=== PATIENT | male | born 1965 | race Caucasian/White ===

== ENCOUNTER 2019-01-11 13:46 | Inpatient (IN) ==
[~2019-01-11 13:46] MED LIST: HYDROmorphone 2 MG/1 ML ONE
[2019-01-11] MEDS ORDERED: DOCUSATE 100 MG CAPSULE PO PRN (13:54)
[2019-01-11] MEDS ORDERED: ONDANSETRON 4 MG/2 ML VIAL IVP PRN (13:54)
[2019-01-11] MEDS ORDERED: CALCIUM CARBONATE 500 MG (TUMS) CHEWABLE TABLET PO PRN (13:54)
[2019-01-11] MEDS ORDERED: HYDROmorphone 2 MG/1 ML IVP PRN (13:54)
[2019-01-11] MEDS ORDERED: LIDOCAINE W/ SODIUM BICARB 0.5 ML SYR SUBD PRN (13:54)
[2019-01-11] MEDS ORDERED: HYDROmorphone 2 MG/1 ML IVP ONE (13:56)
[2019-01-11] MEDS ORDERED: SUMATRIPTAN SUCCINATE 50 MG PO PRN (13:56)
--- NOTE | 2019-01-11 14:04 | PDOC ---
HPI - History of Present Illness Date of Service: 01/11/19 Time of Service: 13:58 Chief Complaint: Chest pain and sternal pain History of Present Illness: Is a very pleasant 53-year-old male with migraine headaches, hypertension, asthma, and recently had an injury about a month ago or so at work in which she was lifting some batteries and felt that he strained his upper back. He's been seeing Dr. Siu for this. The pain is been escalating over time, and today he came into the office stating that he had a cut of vacation short because his upper thoracic pain was excruciating, was literally putting the patient into tears and radiating into his sternum. He had shortness of breath. Nothing was making his pain better. Dr. Siu spoke to me regarding the patient. There was concern that he might have other pathologies other than a disc at a place, and Percocet is not being able to control his pain and perhaps this could be something like a dissection or other medical issue causing the pain as well. I was asked to see him in the clinic and I saw him and he was in writing pain moving backwards and forwards in his chair frequently to try and reposition. He did have some spasm in the left lateral muscles in the upper thoracic and medial to the scapula, but he was quite short of breath, breathing somewhat rapidly, and we admitted him for consideration of chest pain rule out as well as trying to get a CT scan rather quickly to make sure there is no underlying PE or thoracic aortic dissection. The patient does not have a history of diabetes, he has no family history of coronary artery disease although he does have hypert ension in the family, no cholesterol issues, no diabetes, and he does not smoke. Past Medical History Medical History: 1. Asthma. 2. Migraine headaches. 3. Depression/anxiety for which he is on fluoxetine. 4. Hypertension Surgical History: 1. Cholecystectomy. 2. Knee surgery 2. 3. Hand surgery. 4. Back surgery Pertinent Family History: Significant for hypertension Past Social History: Patient does not smoke or drink alcohol. He works. Tobacco Use: Never Smoker In the Past 12 Months, Have Used or Abuse Any of the Following Substance: None Alcohol Use: None Medication / Allergies Home Medications: Home Medications Medication Instructions Recorded Confirmed albuterol sulfate HFA 90 1 puff INH QID PRN #8.5 g 10/23/18 12/25/18 mcg/actuation aerosol inhaler allopurinol 300 mg tablet 300 mg PO QD #90 tab 10/23/18 12/25/18 budesonide-formoterol HFA 160 2 puff INH BID #10.2 g 10/23/18 12/25/18 mcg-4.5 mcg/actuation aerosol inhaler diltiazem CD 180 mg 180 mg PO QDAY #90 cap 10/23/18 12/25/18 capsule,extended release 24 hr fluoxetine 20 mg capsule 20 mg PO DAILY #90 cap 10/23/18 12/25/18 lisinopril 40 mg tablet 40 mg PO QD #90 tab 10/23/18 12/25/18 montelukast 10 mg tablet 10 mg PO DAILY #90 tab 10/23/18 12/25/18 sumatriptan 50 mg tablet 50 mg PO Q2-4H PRN #9 tab 12/01/18 12/25/18 nabumetone 750 mg tablet 750 mg PO QDAY PRN #50 tab 12/11/18 12/25/18 prednisone 10 mg tablet See Rx Instructions PO QDAY #36 tab 12/25/18 12/25/18 diazepam 5 mg tablet 5 mg PO Q6H PRN #30 tab 01/01/19 01/01/19 prednisone 10 mg tablet See Rx Instructions PO QDAY #21 tab 01/04/19 01/04/19 oxycodone-acetaminophen 7.5 mg-325 See Rx Instructions PO Q8H PRN #30 01/06/19 01/06/19 mg tablet tab Allergies/Adverse Reactions: Allergies Allergy/AdvReac Type Severity Reaction Status Date / Time codeine Allergy Mild HIVES Verified 12/25/18 09:27 Review of Systems - Review of Systems All Systems: Reviewed & No Additional Complaints Except as Stated (I did a 12 point review systems and it was negative other than that discussed below and in the history of present illness.) Exam - General General Appearance: Cooperative, Mild Distress (He is breathing at a mildly labored rate, is in obvious pain, has tears) Additional General Exam Details: temperature 97.7 degrees Fahrenheit HR 113 RR 25 BP 120/101 oxygen saturation 94% on room air - Head Head Exam: Normal Inspection, Normocephalic, Atraumatic - Eye Eye Exam: POSITIVE: No Scleral Icterus - ENT ENT Exam: POSITIVE: Mucous Membranes Moist - Neck Neck Exam: Normal Inspection, No Tenderness, No Lymphadenopathy, No Thyromegaly, JVP is not Raised - Respiratory Respiratory Exam: POSITIVE: Clear to Auscultation - Bilaterally, Breathing Non Labored, Normal to Percussion and Palpation - Cardiovascular Cardiovascular Exam: POSITIVE: RRR, No Murmur, No Clicks, No Gallops, No Rubs, No JVD - GI/Abdominal GI/Abdominal Exam: POSITIVE: Normal Bowel Sounds, Non Tender, Non Distended, Soft - Rectal Rectal Exam: POSITIVE: Deferred - External Exam: POSITIVE: Deferred Exam: POSITIVE: Deferred - Extremities Extremities Exam: POSITIVE: No Clubbing Present, No Edema Present, No Cyanosis Present - Back Back Exam: POSITIVE: Muscle Spasm, No CVA Tenderness, Paraspinal Tenderness Additional Back Exam Details: Pain and spasm is in the left muscle bed next to the scapula - Neurological Neurological Exam: POSITIVE: Alert, Oriented x 3, Normal Gait, No Facial Droop, Speech Intact / Clear, Moves All Extremities Equally - Psychiatric Psychiatric Exam: POSITIVE: Anxious - Integumentary Integumentary Exam: POSITIVE: Normal Color, Warm, Dry, Intact Results - Labs Additional Lab Results: I have ordered a CMP, CBC with differential, troponin, PT and INR, and a CTA of the chest to look for pulmonary embolism and thoracic aortic dissection as well as an EKG Assessment and Plan - Patient Problems (1) Chest pain Status: Acute Code(s): R07.9 - Chest pain, unspecified Qualifiers: Chest pain type: chest pain on breathing Qualified Code(s): R07.1 - Chest pain on breathing; R07.81 - Pleurodynia (2) Thoracic back pain Status: Acute Code(s): M54.6 - Pain in thoracic spine Qualifiers: Chronicity: acute Back pain laterality: left Qualified Code(s): M54.6 - Pain in thoracic spine (3) Essential hypertension Status: Acute Onset Date: 01/10/17 Code(s): I10 - Essential (primary) hypertension (4) Gout Status: Chronic Onset Date: 01/10/17 Code(s): M10.9 - Gout, unspecified Qualifiers: Gout site: unspecified site Encounter type: initial encounter Chronicity: chronic Presence of tophus: without tophus (5) Depression (emotion) Status: Chronic Code(s): F32.9 - Major depressive disorder, single episode, unspecified Qualifiers: Depression Type: reactive depression Qualified Code(s): F32.9 - Major depressive disorder, single episode, unspecified (6) Headache, chronic migraine without aura Status: Chronic Code(s): G43.709 - Chronic migraine without aura, not intractable, without status migrainosus Qualifiers: Status migrainosus presence: without status migrainosus Intractability: not intractable Qualified Code(s): G43.709 - Chronic migraine without aura, not intractable, without status migrainosus - Assessment / Plan Additional Assessment/Plan Details: Admit the patient for observation, get CTA as fast as we can assuming creatinine is normal, to make sure there is no evidence of thoracic aortic dissection or pulmonary embolism. Troponins and I will order these serially The stress test is warranted given the patient's symptoms. If the CTA is negative, may work with radiology to consider an intercostal nerve block to help calm down pain in order to get a thoracic and cervical MRI Pain medications Oxygen as necessary. EKG Labs as discussed above Further evaluation and management will be dependent upon the early results of the above studies plan discussed with the patient and he agrees to proceed.
[2019-01-11 14:15] LABS: BASOPHILS # (AUTO) 0.06 10*3/UL; BASOPHILS % (AUTO) 0.6 % (0-1); EOSINOPHILS # (AUTO) 0.18 10*3/UL; EOSINOPHILS % (AUTO) 1.8 % (0-8); Hemoglobin [HGB] 14.9 g/dL (14.0-18.0); MEAN CORPUSCULAR HGB CONC 33.1 g/dL (33-37); MEAN CORPUSCULAR VOLUME 91.8 FL (80-90); MEAN PLATELET VOLUME 10.6 FL (7.4-12.2); MONOCYTES # (AUTO) 0.67 10*3/UL (0.3-0.8); MONOCYTES % (AUTO) 6.7 % (5-15); NEUTROPHILS # (AUTO) 5.62 10*3/UL; NEUTROPHILS % (AUTO) 55.9 % (50-80)
[2019-01-11 14:16] LABS: PLATELET MORPHOLOGY COMMENT NORMAL MORPHOLOGY (NORM); RBC MORPHOLOGY COMMENT NORMAL MORPHOLOGY (NORM); WBC MORPHOLOGY COMMENT NORMAL MORPHOLOGY (NORM)
[2019-01-11 14:29] LABS: BLOOD UREA NITROGEN 17 mg/dL (7-22); BUN/CREATININE RATIO 14.16 (6-20); SERUM ALBUMIN 4.2 g/dL (3.5-4.8)
--- NOTE | 2019-01-11 14:29 | EKG ---
[address] [address] Measurements Intervals [place] Rate: 106 P: 29 [place]: 140 QRS: 59 QRSD: 90 T: 56 QT: 324 QTc: 386 Interpretive Statements SINUS TACHYCARDIA Compared to ECG 12/24/2017 17:12:32 Sinus rhythm no longer present Electronically Signed On 01-12-19 08:03:35 MDT by Ricardo Correia [id number]
[2019-01-11] MEDS ORDERED: DIAZEPAM 10 MG/2 ML (5 MG/1 ML) CARPUJECT ONE (14:51)
[2019-01-11] MEDS ORDERED: DIAZEPAM 10 MG/2 ML (5 MG/1 ML) CARPUJECT IVP ONE ×2 (14:57→16:25)
--- NOTE | 2019-01-11 15:36 | DI ---
CT CTA Chest Non-Coronary WWO,01/11/2019 1:56 PM: Clinical History: Chest pain Previous Exam: January 01, 2019 Findings: Multiple helically acquired CT images are obtained through the chest following the intravenous admini stration of contrast (70 cc of Ultravist 370). The aorta is unremarkable. Skeletal structures are unremarkable. The aorta descends normally with normal course and caliber. Pulmonary arteries are within normal limits A few calcified granulomas are seen within the spleen. The thyroid is normal. There are calcifications within subcarinal lymph nodes. There is no infiltrate nor effusion. The upper abdomen is unremarkable. Impression: No acute intrathoracic pathology. No evidence of aortic dissection or pulmonary embolism.
[2019-01-11] MEDS ORDERED: KETOROLAC 15 MG/1 ML VIAL IVP ONE (16:26)
[2019-01-11] MEDS ORDERED: ALBUTEROL SULFATE 2.5 MG/3 ML NEB PRN (19:00)
[2019-01-11] MEDS ORDERED: FORMOTEROL FUMARATE INH SCH (19:00)
[2019-01-11] MEDS ORDERED: BUDESONIDE INH SCH (19:00)
[2019-01-11] MEDS: HYDROmorphone 2 MG/1 ML IVP PRN ×2 (19:22→22:13)
[2019-01-12] MEDS: HYDROmorphone 2 MG/1 ML IVP PRN ×6 (01:53→21:17)
[2019-01-12] MEDS: DIAZEPAM 10 MG/2 ML (5 MG/1 ML) CARPUJECT IVP PRN ×2 (04:47→21:17)
[2019-01-12 06:06] LABS: BUN/CREATININE RATIO 17.85 (6-20); SERUM ALBUMIN 4.3 g/dL (3.5-4.8)
[2019-01-12] MEDS ORDERED: KETOROLAC 15 MG/1 ML VIAL IVP ONE (06:14)
[2019-01-12] MEDS: Methocarbamol Tab 500 MG TAB PO PRN ×2 (07:06→16:39)
[2019-01-12] MEDS: ACETAMINOPHEN 325 MG TABLET PO PRN (07:06)
[2019-01-12] MEDS: FLUoxetine 20 MG CAPSULE PO SCH (08:25)
[2019-01-12] MEDS: oxyCODONE/APAP 7.5/325 Tab 1 TAB TAB PO PRN ×3 (08:25→16:25)
[2019-01-12] MEDS: ALLOPURINOL 300 MG TABLET PO SCH (08:25)
[2019-01-12] MEDS: DILTIAZEM CD 180 MG CAP PO SCH (08:25)
[2019-01-12] MEDS: Montelukast Tab 10 MG TAB PO SCH (08:25)
[2019-01-12] MEDS ORDERED: LISINOPRIL 20 MG TABLET PO SCH (09:00)
--- NOTE | 2019-01-12 11:38 | DI ---
MRI Cervical Spine WO Contrast,01/12/2019 4:14 PM: Clinical History: Left neck pain and left muscle pain. Patient was given medication to hold still. Previous Exam: None at this facility. Findings: Multiplanar MR images are obtained through the cervical spine without contrast, and demonstrate anato roxana alignment without fractures. The prevertebral soft tissues are unremarkable. The paravertebral mu sculature is unremarkable. The spinal cord descends normally with normal course, caliber and signal characteristics. The parapharyngeal fat is normal and symmetric. There is straightening of the normal lordotic curvature of the cervical spine. Visualized portions of the parotid glands and the submandibular glands are unremarkable. The major vascular flow voids are unremarkable. Individual intervertebral disc spaces: C2/C3: There is a broad-based disc bulge with some uncovertebral joint and some facet hypertrophy con tributing to mild bilateral neural foraminal narrowing and mild central canal stenosis. C3/4: There is disc desiccation, uncovertebral joint osteophytes and some facet hypertrophy combining with some congenital central canal stenosis 2 cause moderate central canal stenosis and mild bilater al neural foraminal narrowing. C4/5: There is disc desiccation, uncovertebral joint osteophyte formation and facet and ligamentum fl avum hypertrophy combining with central canal stenosis to cause severe central canal stenosis and mil d bilateral neural foraminal narrowing. There is no evidence of myelomalacia on this exam. C5/6: There is disc desiccation, annular fissuring and a broad-based disc bulge with uncovertebral paige int osteophyte formation and some facet hypertrophy combining with congenital central canal stenosis to cause severe central canal stenosis with mild left and moderate right neural foraminal narrowing. C6/7: There is disc desiccation, uncovertebral joint osteophyte formation and some facet hypertrophy contributing to moderate central canal stenosis. There is mild right and moderate to severe left neur al foraminal narrowing. C7/T1: This level is not evaluated on this exam. Impression: Congenital central canal stenosis with severe central canal stenosis at C4/5, C5/6 and C6/7. There is no evidence of myelomalacia on this study. Consider neurosurgical consultation.
--- NOTE | 2019-01-12 12:54 | DI ---
MRI Abdomen WO Contrast,01/12/2019 9:12 AM: Clinical History: Elevated liver enzymes. Question common bile duct obstruction. Previous Exam: None at this facility. Findings: Multiplanar MR images are obtained through the abdomen without contrast, and demonstrate a normal yoselin iary tree. Common bile duct is normal. The pancreatic duct is normal. The adrenals and kidneys are un remarkable. The spleen and pancreas are within normal limits. There is no free fluid. The major vascular flow voids are unremarkable. There are a few small simple cysts noted within the right kidney. These are subcentimeter in size. Visualized portions of large and small bowel loops are grossly normal. Skeletal structures are not well evaluated on this exam. Impression: Normal MRCP.
[2019-01-12] MEDS ORDERED: HYDROcodone-APAP 7.5 MG-325 MG TABLET PO PRN (13:46)
--- NOTE | 2019-01-12 14:05 | DI ---
MRI Thoracic Spine WO Contrast,01/12/2019 4:14 PM: Clinical History: Left muscle pain near the scapula. Question thoracic disc. Previous Exam: None at this facility. Findings: Multiplanar MR images are obtained through the thoracic spine without contrast, and demonstrate anato roxana alignment. Vertebral body height is preserved. There is some mild bony edema involving the T3/4 v ertebral bodies although signal within the disc space demonstrates normal signal and there is no broa d-based disc bulge. The spinal cord descends normally with normal course, caliber and signal characteristics. Visualized portions of the kidneys are unremarkable. The major vascular flow voids are unremarkable. The paraspinal musculature is within normal limits. There are small broad-based disc bulges at multiple levels none of which cause any significant centra l canal nor neural foraminal narrowing. The most prominent of these is at the T8/9 level causing some mild mass effect on the ventral surface of the thoracic spinal cord. There is no significant stenosi s. Impression: 1. No significant central canal nor neural foraminal narrowing. 2. Vague bony edema involving the T3 and T4 vertebral bodies probably involving the anterior portion of the vertebral bodies. These are believed to represent Modic type I degenerative changes.
--- NOTE | 2019-01-12 14:58 | PDOC(PROG) ---
Date of Service: 01/12/19 Time of Service: 14:53 Interval History: Patient seen, evaluated earlier today. No chest pain. No shortness of breath. No nausea or vomiting. The thoracic back pain medial to scapula below the scapula is somewhat better, radiating more to the left shoulder now. We discussed radiology reports and cervical canal stenosis. We'll get neurosurgery involved to evaluate the patient would be fine with that consultation. He had his gallbladder removed remotely. MRI scan of the abdomen was negative for any, bile duct obstruction. He does think that the pain medication such as Dilaudid, Robaxin, on anti- inflammatory and Toradol have helped. Objective : Data - Labs CBC and BMP: 01/11/19 14:05 01/12/19 05:50 Additional Lab Results: 01/12/19 01/12/19 05:50 05:50 Glucose 113 H Calculated Osmolality 290.0 Calcium 9.6 Total Bilirubin 1.6 H AST 494 H ALT 648 H Alkaline Phosphatase 223 H Troponin I < 0.012 Total Protein 8.0 Albumin 4.3 Globulin 3.7 - Imaging MRI Status: Report Reviewed by Me (I discussed the reports with radiology. The thoracic MRI scan does not really explain the patient's pain. The cervical MRI scan might, but I'm not sure. So we will get neurosurgery involved to evaluate the patient as well. Negative MRI scan of the abdomen.) Objective : Exam - General General Appearance: No Acute Distress, Cooperative Additional General Exam Details: Vital Signs - Last Taken Temperature 97.2 F 01/12/19 12:43 Pulse Rate 115 H 01/12/19 13:00 Respiratory Rate 20 01/12/19 12:43 Blood Pressure 100/56 01/12/19 12:43 Pulse Ox 97 01/12/19 13:00 - Eye Eye Exam: No Scleral Icterus - ENT ENT Exam: Mucous Membranes Moist - Neck Neck Exam: JVP is not Raised - Respiratory Respiratory Exam: Clear to Auscultation - Bilaterally, Breathing Non Labored - Cardiovascular Cardiovascular Exam: RRR, No Murmur, No Clicks, No Gallops, No Rubs, No JVD - GI/Abdominal GI/Abdominal Exam: Normal Bowel Sounds, Non Tender, Non Distended, Soft - Extremities Extremities Exam: No Clubbing Present, No Edema Present, No Cyanosis Present - Back Additional Back Exam Details: screw machine tender along the left paraspinal musculature. Not as much spasm today. - Neurological Neurological Exam: Alert, Oriented x 3, No Facial Droop, Speech Intact / Clear, Moves All Extremities Equally Assessment and Plan - Patient Problems (1) Thoracic back pain Current Visit: Yes Status: Acute Code(s): M54.6 - Pain in thoracic spine Qualifiers: Chronicity: acute Back pain laterality: left Qualified Code(s): M54.6 - Pain in thoracic spine (2) Essential hypertension Current Visit: Yes Status: Acute Onset Date: 01/10/17 Code(s): I10 - Essential (primary) hypertension (3) Gout Current Visit: Yes Status: Chronic Onset Date: 01/10/17 Code(s): M10.9 - Gout, unspecified Qualifiers: Gout site: unspecified site Encounter type: initial encounter Chronicity: chronic Presence of tophus: without tophus (4) Depression (emotion) Current Visit: Yes Status: Chronic Code(s): F32.9 - Major depressive disorder, single episode, unspecified Qualifiers: Depression Type: reactive depression Qualified Code(s): F32.9 - Major depressive disorder, single episode, unspecified (5) Headache, chronic migraine without aura Current Visit: Yes Status: Chronic Code(s): G43.709 - Chronic migraine without aura, not intractable, without status migrainosus Qualifiers: Status migrainosus presence: without status migrainosus Intractability: not intractable Qualified Code(s): G43.709 - Chronic migraine without aura, not intractable, without status migrainosus (6) Chest pain Current Visit: Yes Status: Resolved Code(s): R07.9 - Chest pain, unspecified Qualifiers: Chest pain type: chest pain on breathing Qualified Code(s): R07.1 - Chest pain on breathing; R07.81 - Pleurodynia (7) Cervical stenosis of spine Current Visit: Yes Status: Acute Code(s): M48.02 - Spinal stenosis, cervical region - Assessment / Plan Additional Assessment/Plan Details: We'll try to get the patient on by mouth medications for pain. I suspect this may take some time so start those but I will leave the IV pain medications on board for now. Consult neurosurgery. I spoke with Dr. Gomes. He'll be willing to see the patient tomorrow. I'm very grateful to him for his help with this patient. I'm not sure why the liver enzymes are elevated. MRCP is normal. Get ultrasound to look at the liver as well. And also get a lipase and a hepatitis panel. Not sure if it is medication related or not but that's a possibility. I will also get a sedimentation rate and a CRP although I doubt infection. Order PT and OT. Dry needling might help if this is a muscle strain. I have okayed therapy to do that if necessary.
--- NOTE | 2019-01-12 16:05 | DI ---
US Abdomen Limited,01/12/2019 9:11 AM: Clinical History: Elevated liver enzymes question liver problem. Previous Exam: None at this facility. Findings: Multiple grayscale and color Doppler sonographic images are obtained of the right upper quadrant, and demonstrate diffuse echogenicity of the liver which is also enlarged measuring 19 cm in long axis. The common bile duct measures 6 mm. A negative sonographic Benítez's sign was obtained. The right kidney measures 10.1 cm in length without hydronephrosis nor nephrolithiasis. Impression: Diffusely echogenic and enlarged liver most likely representing diffuse fatty infiltration.
[2019-01-12] MEDS ORDERED: Sodium Chloride 0.9% 1,000 ML PRIMARY IV ONE (19:42)
[2019-01-13] MEDS: ACETAMINOPHEN 325 MG TABLET PO PRN (00:27)
[2019-01-13] MEDS: HYDROmorphone 2 MG/1 ML IVP PRN ×3 (00:27→08:17)
[2019-01-13] MEDS ORDERED: Sodium Chloride 0.9% 1,000 ML PRIMARY IV ONE ×2 (01:22→02:30)
[2019-01-13 02:04] LABS: BASOPHILS # (AUTO) 0.08 10*3/UL; BASOPHILS % (AUTO) 0.9 % (0-1); EOSINOPHILS # (AUTO) 0.21 10*3/UL; EOSINOPHILS % (AUTO) 2.3 % (0-8); Hematocrit [HCT] 40.5 % (42.0-52.0); Hemoglobin [HGB] 13.2 g/dL (14.0-18.0); LYMPHOCYTES # (AUTO) 2.45 10*3/uL; MEAN CORPUSCULAR HGB CONC 32.6 g/dL (33-37); MEAN CORPUSCULAR VOLUME 94.8 FL (80-90); MEAN PLATELET VOLUME 10.5 FL (7.4-12.2); MONOCYTES # (AUTO) 0.82 10*3/UL (0.3-0.8); MONOCYTES % (AUTO) 8.8 % (5-15); NEUTROPHILS # (AUTO) 5.72 10*3/UL; NEUTROPHILS % (AUTO) 61.3 % (50-80); RED BLOOD COUNT 4.27 10^6/uL (4.70-6.10)
[2019-01-13 02:05] LABS: PLATELET MORPHOLOGY COMMENT NORMAL MORPHOLOGY (NORM); RBC MORPHOLOGY COMMENT NORMAL MORPHOLOGY (NORM); WBC MORPHOLOGY COMMENT NORMAL MORPHOLOGY (NORM)
[2019-01-13 02:14] LABS: BUN/CREATININE RATIO 18.94 (6-20); SERUM ALBUMIN 3.8 g/dL (3.5-4.8)
--- NOTE | 2019-01-13 02:14 | DI ---
EXAM: XR Chest, 1 View CLINICAL HISTORY: ITS.REASON fever Physician Notes: Tech Comments: TECHNIQUE: Frontal view of the chest. COMPARISON: 12/18/18 FINDINGS: Lungs: Unremarkable. No acute airspace opacities. Pleural space: Unremarkable. No pleural effusion or pneumothorax. Heart: Unremarkable. No cardiomegaly. Mediastinum: Unremarkable. Bones/joints: Unremarkable. No acute fracture. No dislocation. IMPRESSION: No acute cardiopulmonary findings.
[2019-01-13] MEDS: oxyCODONE/APAP 7.5/325 Tab 1 TAB TAB PO PRN (03:24)
[2019-01-13] MEDS ORDERED: Sodium Chloride 0.9% 1,000 ML PRIMARY IV SCH (03:30)
[2019-01-13 03:38] LABS: BILIRUBIN,URINE SMALL (NEG); CLARITY,URINE CLEAR (CLEAR); COLOR,URINE YELLOW (Y); GLUCOSE, URINE (UA) NEGATIVE (NEG); OCCULT BLOOD,URINE NEGATIVE (NEG); PROTEIN,URINE NEGATIVE (NEG); URINE SAMPLE TYPE CLEAN CATCH URINE; UROBILINOGEN,URINE 0.2 EU/dL (0.2)
[2019-01-13] MEDS ORDERED: METHYLPREDNISOLONE 4 MG TAB DOSE PACK(DAY 1 0700) PO SCH (07:00)
[2019-01-13 08:04] VITALS: RESP 20
[2019-01-13] MEDS: ALLOPURINOL 300 MG TABLET PO SCH (08:16)
[2019-01-13] MEDS: FLUoxetine 20 MG CAPSULE PO SCH (08:16)
[2019-01-13] MEDS: Montelukast Tab 10 MG TAB PO SCH (08:17)
[2019-01-13] MEDS: DILTIAZEM CD 180 MG CAP PO SCH (08:22)
[2019-01-13] MEDS ORDERED: METHYLPREDNISOLONE 4 MG TAB DOSE PACK PO SCH (09:00)
--- NOTE | 2019-01-13 09:11 | DCSUMMARY ---
Hospitalization Summary Admit Date: 01/11/2019 Discharge Date: 01/13/19 Primary Diagnosis:: early sepsis with elevated LFTs and renal failure Hospital Course: This very pleasant 53-year-old male that has had about a month of paraspinal musculature tenderness between his scapula and spine on the left side. Thus far, it has been of unclear etiology. He was visiting his orthopedic physician in the office when he was writhing in pain and actually in tears bobbing back wards and forwards in his chair when I saw him in the office. This was on January 11. We admitted him as he had pain radiating to his chest thinking that perhaps he had a pulmonary embolus or a dissecting aortic aneurysm. A CTA of the chest was negative for these things, but on laboratory workup we noticed elevated liver enzymes. In terms of the thoracic back pain, I did further workup including a cervical MRI scan and a thoracic MRI scan. There were some degenerative changes and the anterior vertebral bodies in the thoracic spine at T3 and T4, but nothing to really explain the thoracic musculature pain in the paraspinal muscles otherwise. 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 It's not clear that caused it, but I did discuss with neurosurgery, and they felt that it was unlikely that spinal stenosis with cause radicular pain in the thoracic musculature. The plan was for them to consult today, but overnight, the patient had fevers as high as 101.7, with hypotension. In terms of the fever with hypotension, we did an extensive workup including blood cultures, chest x-ray, urinalysis, CBC with differential and comprehensive metabolic panel. His liver enzymes remain elevated although his total bilirubin has normalized. His chest x-ray was negative last night for infection. His urinalysis was negative. We did an ultrasound of his liver and that appeared consistent with fatty liver disease earlier this hospital stay. Given his elevated bilirubin and elevated liver enzymes and alkaline phosphatase, I also had an MRCP done of his abdomen and that was negative for any common bile duct stone or obstruction and was a normal study. Thus far, I have no source for the fever. There are no murmurs on exam. As I explained to the patient, I am at the limit of what I am able to do this situation. I recommended transfer to [place] for continued workup of this fever, elevated liver enzymes, and interestingly, this morning the patient was noted to be in renal failure as well. I do not have a great source for this fever. I have held off on antibiotics at this point. He has systolic pressures as low as 73 last night but did respond to fluid resuscitation with 2 L of normal saline. He is on 125 of normal saline at this point. I have stopped his JUSTIN inhibitor and that was not given this morning. In addition, he did get Tylenol for his fever. For the elevated liver enzymes, I also did order viral hepatitis panel which is pending at this time. My plan this morning was actually do a CT scan of the abdomen and pelvis to look for potential occult abscess, particularly with the liver enzymes still being elevated in the setting of his fever, but when I size creatinine this morning at 1.9, I decided this would not be a good idea. I think the renal failure is probably related to hypotension, anti-inflammatories this hospital stay, contrast earlier this hospital stay for his CTA of the chest, but I cannot rule out that sepsis is a potential etiology of the renal failure as well. The patient remains a diagnostic dilemma, and now has early sepsis, renal failure, elevated liver enzymes, and continued paraspinal musculature back pain of unclear etiology. It has been essentially unresponsive to conservative measures for pain control. I recommended that we transfer him to [facility] for potential infectious disease and nephrology evaluation. I spoke to the hospitalist 2 and the infectious disease doctor, who will see the patient. They may end up doing some further workup prior to getting a n ephrologist involved but overall except that the patient graciously and I'm very appreciative of that. Patient continues to have the paraspinal musculature pain on his left back. This is between the scapula and the spine. He denies chest pain or shortness breath this morning. He has not urinated. Assessment and Plan: 1. As per discharge assessments noted 2. Disposition: Patient is discharged to [facility] 3. Condition on discharge, stable, but with early sepsis without clear etiology he certainly could deteriorate in terms of his condition 4. Diet: regular diet 5. Activities: As per physician's [facility] 6. Follow-Up: 1. Dr. Romero 7 days post discharge 2. Dr. Gomes in a couple of weeks for evaluation of congenital spinal stenosis in the cervical spine 7. Medications at the Time of Discharge: Active Medications Generic Name Dose Route Start Last Admin Trade Name Freq PRN Reason Stop Dose Admin Acetaminophen 650 mg 01/11/19 13:54 01/13/19 00:27 Tylenol PO 650 mg Q6H PRN Administration Pain or Fever Hydrocodone Bitart/Acetaminophen 1 - 2 tab 01/12/19 13:46 [place] 7.5/325 Tab PO Q6H PRN Pain Albuterol Sulfate 2.5 mg 01/11/19 19:00 Albuterol Neb Soln 0.083% NEB RTQID PRN Shortness of Breath Allopurinol 300 mg 01/12/19 09:00 01/13/19 08:16 Zyloprim PO 300 mg DAILY FRANCESCO Administration Calcium Carbonate 1 - 2 tab 01/11/19 13:54 Tums PO Q6H PRN Heartburn Diazepam 5 mg 01/11/19 16:25 01/12/19 21:17 Valium Inj IVP 5 mg Q6H PRN Administration spasm Diltiazem HCl 180 mg 01/12/19 09:00 01/13/19 08:22 Cardizem Cd PO 180 mg DAILY FRANCESCO Administration Docusate Sodium 100 mg 01/11/19 13:54 Colace PO BID PRN Constipation Fluoxetine HCl 20 mg 01/12/19 09:00 01/13/19 08:16 Prozac PO 20 mg DAILY FRANCESCO Administration Hydromorphone HCl 2 mg 01/11/19 16:26 01/13/19 08:17 Dilaudid Inj IVP 2 mg Q3H PRN Administration Pain Sodium Chloride 25 mls @ 200 mls/hr 01/11/19 13:54 Normal Saline 0.9% IV .Post Infusion PRN No Primary IV for Flush ONLY Sodium Chloride 1,000 mls @ 125 mls/hr 01/13/19 03:30 01/13/19 03:24 Normal Saline PRIMARY IV 125 mls/hr .Q8H FRANCESCO Administration Lidocaine HCl 0.5 ml 01/11/19 13:54 Lidocaine Buffered Inj SUBD ONCE PRN IV Starts Methocarbamol 500 mg 01/11/19 16:26 01/12/19 16:39 Robaxin PO 500 mg TID PRN Administration muscle spasm Montelukast Sodium 10 mg 01/12/19 09:00 01/13/19 08:17 Singulair PO 10 mg DAILY FRANCESCO Administration Ondansetron HCl 4 mg 01/11/19 13:54 01/12/19 04:33 Zofran Inj IVP 4 mg Q4H PRN Administration NAUSEA / VOMITING Oxycodone/Acetaminophen 1 - 2 tab 01/12/19 07:49 01/13/19 03:24 Percocet 7.5/325 Tab PO 1 tab Q4H PRN Administration Pain 8. Time, care, counseling and coordination of care for this discharge is greater than 30 minutes. Exam - Vitals Vital Signs: Vital Signs Temperature 98.1 F Temperature Source Oral Pulse Rate [Pulse Oximeter] 94 Pulse Rate [Telemetry] 99 Pulse Rate [right finger] 88 Pulse Rate 91 Respiratory Rate 20 Blood Pressure [Left Arm] 125/66 Pulse Ox [right finger] 98 Pulse Ox 98 Oxygen Flow Rate [right finger 3 ] Oxygen Flow Rate 3 Oxygen Delivery Method [right Nasal Cannula finger] Oxygen Delivery Method Nasal Cannula Height 5 ft 10 in Weight 281 lb 12.8 oz Selected Entries 01/12/19 07:16 01/12/19 07:19 01/12/19 13:00 Temperature Temperature Source Pulse Rate [Pulse Oximeter] 112 H Pulse Rate [right finger] 116 H 115 H Respiratory Rate Blood Pressure [Left Arm] Blood Pressure Mean [Left Arm] Pulse Ox Oxygen Delivery Method Oxygen Flow Rate 01/12/19 19:21 01/12/19 19:43 01/12/19 20:59 Temperature Temperature Source Pulse Rate [Pulse Oximeter] Pulse Rate [right finger] 93 Respiratory Rate Blood Pressure [Left Arm] 87/55 88/55 Blood Pressure Mean [Left Arm] Pulse Ox Oxygen Delivery Method Oxygen Flow Rate 01/12/19 23:00 01/13/19 00:20 01/13/19 00:27 Temperature 101.1 F H Temperature Source Pulse Rate [Pulse Oximeter] Pulse Rate [right finger] 94 Respiratory Rate Blood Pressure [Left Arm] 97/53 Blood Pressure Mean [Left Arm] Pulse Ox 96 Oxygen Delivery Method Nasal Cannula Oxygen Flow Rate 7 01/13/19 01:08 01/13/19 01:15 01/13/19 02:30 Temperature 101.5 F H 101.5 F H 101.7 F H Temperature Source Pulse Rate [Pulse Oximeter] Pulse Rate [right finger] Respiratory Rate Blood Pressure [Left Arm] 73/37 95/61 Blood Pressure Mean [Left Arm] Pulse Ox Oxygen Delivery Method Oxygen Flow Rate 07/31/19 03:25 01/13/19 05:09 01/13/19 08:01 Temperature 98.1 F Temperature Source Oral Pulse Rate [Pulse Oximeter] 94 Pulse Rate [right finger] Respiratory Rate 20 Blood Pressure [Left Arm] 109/58 104/64 125/66 Blood Pressure Mean [Left Arm] 85 Pulse Ox 98 Oxygen Delivery Method Nasal Cannula Oxygen Flow Rate 3 - General General Appearance: No Acute Distress, Cooperative - Eye Eye Exam: POSITIVE: No Scleral Icterus - ENT ENT Exam: POSITIVE: Mucous Membranes Moist - Neck Neck Exam: JVP is not Raised - Respiratory Respiratory Exam: POSITIVE: Clear to Auscultation - Bilaterally, Breathing Non Labored Additional Respiratory Exam Details: The spasm in the paraspinal musculature has calmed down - Cardiovascular Cardiovascular Exam: POSITIVE: RRR, No Murmur, No Clicks, No Gallops, No Rubs, No JVD - GI/Abdominal GI/Abdominal Exam: POSITIVE: Non Tender, Non Distended, Soft - Extremities Extremities Exam: POSITIVE: No Clubbing Present, No Edema Present, No Cyanosis Present - Neurological Neurological Exam: POSITIVE: Alert, Oriented x 3, No Facial Droop, Speech Intact / Clear, Moves All Extremities Equally Data Peritnent Studies: 01/12/19 01/12/19 01/13/19 13:11 13:11 01:50 WBC Hgb Hct Plt Count ESR 20 H Sodium Potassium Chloride Carbon Dioxide Anion Gap BUN Creatinine Estimated GFR BUN/Creatinine Ratio Glucose Calculated Osmolality Lactic Acid 1.6 Calcium Total Bilirubin AST ALT Alkaline Phosphatase C-Reactive Protein Total Protein Albumin Globulin Albumin/Globulin Ratio Lipase 233 Ur Culture Indicated? 01/13/19 01/13/19 01/13/19 01:50 01:50 01:50 WBC 9.32 Hgb 13.2 L Hct 40.5 L Plt Count 268 ESR Sodium 138 Potassium 4.5 Chloride 101 Carbon Dioxide 27 Anion Gap 10 BUN 36 H Creatinine 1.9 H Estimated GFR 38 BUN/Creatinine Ratio 18.94 Glucose 111 H Calculated Osmolality 294.0 H Lactic Acid Calcium 9.3 Total Bilirubin 1.2 AST 236 H ALT 491 H Alkaline Phosphatase 185 H C-Reactive Protein 2.5 H Total Protein 7.0 Albumin 3.8 Globulin 3.2 Albumin/Globulin Ratio 1.10 L Lipase Ur Culture Indicated? 01/13/19 03:36 WBC Hgb Hct Plt Count ESR Sodium Potassium Chloride Carbon Dioxide Anion Gap BUN Creatinine Estimated GFR BUN/Creatinine Ratio Glucose Calculated Osmolality Lactic Acid Calcium Total Bilirubin AST ALT Alkaline Phosphatase C-Reactive Protein Total Protein Albumin Globulin Albumin/Globulin Ratio Lipase Ur Culture Indicated? Culture not set 01/11/19 01/11/19 01/11/19 14:05 14:05 14:05 PT 11.6 INR 1.01 Total Bilirubin AST 58 H ALT 212 H Alkaline Phosphatase 148 H Troponin I < 0.012 Lipase 01/11/19 01/12/19 01/12/19 17:19 05:50 05:50 PT INR Total Bilirubin 1.6 H AST 494 H ALT 648 H Alkaline Phosphatase 223 H Troponin I < 0.012 < 0.012 Lipase 01/12/19 01/13/19 13:11 01:50 PT INR Total Bilirubin 1.2 AST 236 H ALT 491 H Alkaline Phosphatase 185 H Troponin I Lipase 233 Procedures: [address] [facility] [place] [address] PH: DD: [phone] FAX: [phone] ~DIAGNOSTIC IMAGING REPORT~ Patient: YEIMI BARDALES : 1965 Sex: M Age: 53 Exam Name: XR CXR 1VW Exam Date: 01/13/19 Report # : [id number] CPT Code: 63478 EMR/MR #: [id number] Ordering: NAILA RAE Admiting: NAILA RAE DO Primary: Arturo Smith MD Attending: NAILA KER, DO Signed EXAM: XR Chest, 1 View CLINICAL HISTORY: ITS.REASON fever Physician Notes: Tech Comments: TECHNIQUE: Frontal view of the chest. COMPARISON: 12/18/18 FINDINGS: Lungs: Unremarkable. No acute airspace opacities. Pleural space: Unremarkable. No pleural effusion or pneumothorax. Heart: Unremarkable. No cardiomegaly. Mediastinum: Unremarkable. Bones/joints: Unremarkable. No acute fracture. No dislocation. IMPRESSION: No acute cardiopulmonary findings. Dictated By: Raoul Watts MD Signed By: 01/13/19 0214 Raoul Watts MD [address] [facility] [place] [address] PH: DD: [phone] FAX: [phone] ~DIAGNOSTIC IMAGING REPORT~ Patient: YEIMI BARDALES : 1965 Sex: M Age: 53 Exam Name: MRI Thoracic Spine WO Contrast Exam Date: 01/12/19 Report # : [id number] CPT Code: 62377 EMR/MR #: [id number] Ordering: NAILA RAE Admiting: NAILA RAE DO Primary: Arturo Smith MD Attending: NAILA RAE DO Signed MRI Thoracic Spine WO Contrast,01/12/2019 4:14 PM: Clinical History: Left muscle pain near the scapula. Question thoracic disc. Previous Exam: None at this facility. Findings: Multiplanar MR images are obtained through the thoracic spine without contrast, and demonstrate anatomic alignment. Vertebral body height is preserved. There is some mild bony edema involving the T3/4 vertebral bodies although signal within the disc space demonstrates normal signal and there is no broad-based disc bulge. The spinal cord descends normally with normal course, caliber and signal characteristics. Visualized portions of the kidneys are unremarkable. The major vascular flow voids are unremarkable. The paraspinal musculature is within normal limits. There are small broad-based disc bulges at multiple levels none of which cause any significant central canal nor neural foraminal narrowing. The most prominent of these is at the T8/9 level causing some mild mass effect on the ventral surface of the thoracic spinal cord. There is no significant stenosis. Impression: 1. No significant central canal nor neural foraminal narrowing. 2. Vague bony edema involving the T3 and T4 vertebral bodies probably involving the anterior portion of the vertebral bodies. These are believed to represent Modic type I degenerative changes. Dictated By: 01/12/19 1219 LESTER BARTLETT MD. Signed By: 01/12/19 1403 LESTER BARTLETT MD. [address] [facility] [place] [address] PH: DD: [phone] FAX: [phone] ~DIAGNOSTIC IMAGING REPORT~ Patient: YEIMI BARDALES : 1965 Sex: M Age: 53 Exam Name: MRI Cervical Spine WO Contrast Exam Date: 01/12/19 Report # : [id number] CPT Code: 41274 EMR/MR #: [id number] Ordering: NAILA RAE Admiting: NAILA RAE DO Primary: Arturo Smith MD Attending: NAILA RAE DO Signed MRI Cervical Spine WO Contrast,01/12/2019 4:14 PM: Clinical History: Left neck pain and left muscle pain. Patient was given medication to hold still. Previous Exam: None at this facility. Findings: Multiplanar MR images are obtained through the cervical spine without contrast, and demonstrate anatomic alignment without fractures. The prevertebral soft tissues are unremarkable. The paravertebral musculature is unremarkable. The spinal cord descends normally with normal course, caliber and signal characteristics. The parapharyngeal fat is normal and symmetric. There is straightening of the normal lordotic curvature of the cervical spine. Visualized portions of the parotid glands and the submandibular glands are unremarkable. The major vascular flow voids are unremarkable. Individual intervertebral disc spaces: C2/C3: There is a broad-based disc bulge with some uncovertebral joint and some facet hypertrophy contributing to mild bilateral neural foraminal narrowing and mild central canal stenosis. C3/4: There is disc desiccation, uncovertebral joint osteophytes and some facet hypertrophy combining with some congenital central canal stenosis 2 cause moderate central canal stenosis and mild bilateral neural foraminal narrowing. C4/5: There is disc desiccation, uncovertebral joint osteophyte formation and facet and ligamentum flavum hypertrophy combining with central canal stenosis to cause severe central canal stenosis and mild bilateral neural foraminal narrowing. There is no evidence of myelomalacia on this exam. C5/6: There is disc desiccation, annular fissuring and a broad-based disc bulge with uncovertebral joint osteophyte formation and some facet hypertrophy combining with congenital central canal stenosis to cause severe central canal stenosis with mild left and moderate right neural foraminal narrowing. C6/7: There is disc desiccation, uncovertebral joint osteophyte formation and some facet hypertrophy contributing to moderate central canal stenosis. There is mild right and moderate to severe left neural foraminal narrowing. C7/T1: This level is not evaluated on this exam. Impression: Congenital central canal stenosis with severe central canal stenosis at C4/5, C5/6 and C6/7. There is no evidence of myelomalacia on this study. Consider neurosurgical consultation. Dictated By: 01/12/19 6931 LESTER BARTLETT MD. Signed By: 01/12/19 1135 LESTER BARTLETT MD. [address] [facility] [place] [address] PH: DD: [phone] FAX: [phone] ~DIAGNOSTIC IMAGING REPORT~ Patient: YEIMI BARDALES : 1965 Sex: M Age: 53 Exam Name: MRI Abdomen WO Contrast Exam Date: 01/12/19 Report # : [id number] CPT Code: 12466 EMR/MR #: [id number] Ordering: NAILA RAE Admiting: NAILA RAE DO Primary: Arturo Smith MD Attending: NAILA RAE DO Signed MRI Abdomen WO Contrast,01/12/2019 9:12 AM: Clinical History: Elevated liver enzymes. Question common bile duct obstruction. Previous Exam: None at this facility. Findings: Multiplanar MR images are obtained through the abdomen without contrast, and demonstrate a normal biliary tree. Common bile duct is normal. The pancreatic duct is normal. The adrenals and kidneys are unremarkable. The spleen and pancreas are within normal limits. There is no free fluid. The major vascular flow voids are unremarkable. There are a few small simple cysts noted within the right kidney. These are subcentimeter in size. Visualized portions of large and small bowel loops are grossly normal. Skeletal structures are not well evaluated on this exam. Impression: Normal MRCP. Dictated By: 01/12/19 1247 LESTER BARTLETT MD. Signed By: 01/12/19 1254 LESTER BARTLETT MD. [address] [facility] [place] [address] PH: DD: [phone] FAX: [phone] ~DIAGNOSTIC IMAGING REPORT~ Patient: YEIMI BARDALES : 1965 Sex: M Age: 53 Exam Name: US Abdomen Limited Exam Date: 01/12/19 Report # : [id number] CPT Code: 66345 EMR/MR #: [id number] Ordering: NAILA RAE Admiting: NAILA RAE DO Primary: Arturo Smith MD Attending: NAILA RAE DO Signed US Abdomen Limited,01/12/2019 9:11 AM: Clinical History: Elevated liver enzymes question liver problem. Previous Exam: None at this facility. Findings: Multiple grayscale and color Doppler sonographic images are obtained of the right upper quadrant, and demonstrate diffuse echogenicity of the liver which is also enlarged measuring 19 cm in long axis. The common bile duct measures 6 mm. A negative sonographic Benítez's sign was obtained. The right kidney measures 10.1 cm in length without hydronephrosis nor nephrolithiasis. Impression: Diffusely echogenic and enlarged liver most likely representing diffuse fatty infiltration. Dictated By: 01/12/19 7793 LESTER BARTLETT MD. Signed By: 01/12/19 1427 LESTER BARTLETT MD. [address] [facility] [place] [address] PH: DD: [phone] FAX: [phone] ~DIAGNOSTIC IMAGING REPORT~ Patient: YEIMI BARDALES : 1965 Sex: M Age: 53 Exam Name: CT CTA Chest Non-Coronary [facility] Exam Date: 01/11/19 Report # : [id number] CPT Code: 58045 EMR/MR #: [id number] Ordering: NAILA RAE Admiting: NAILA RAE DO Primary: Arturo Smith MD Attending: NAILA RAE DO Signed CT CTA Chest Non-Coronary O,01/11/2019 1:56 PM: Clinical History: Chest pain Previous Exam: January 01, 2019 Findings: Multiple helically acquired CT images are obtained through the chest following the intravenous administration of contrast (70 cc of Ultravist 370). The aorta is unremarkable. Skeletal structures are unremarkable. The aorta descends normally with normal course and caliber. Pulmonary arteries are within normal limits A few calcified granulomas are seen within the spleen. The thyroid is normal. There are calcifications within subcarinal lymph nodes. There is no infiltrate nor effusion. The upper abdomen is unremarkable. Impression: No acute intrathoracic pathology. No evidence of aortic dissection or pulmonary embolism. Dictated By: 01/11/19 1529 LESTER BARTLETT MD. Signed By: 01/11/19 1536 LESTER BARTLETT MD. Patient Problems - Patient Problem List (1) Sepsis Current Visit: Yes Status: Acute Code(s): A41.9 - Sepsis, unspecified organism Qualifiers: Sepsis type: sepsis due to unspecified organism Qualified Code(s): A41.9 - Sepsis, unspecified organism Category: Medical (2) Renal failure Current Visit: Yes Status: Acute Code(s): N19 - Unspecified kidney failure Qualifiers: Renal failure chronicity: acute Acute renal failure type: unspecified Qualified Code(s): N17.9 - Acute kidney failure, unspecified Category: Medical (3) Thoracic back pain Current Visit: Yes Status: Acute Code(s): M54.6 - Pain in thoracic spine Qualifiers: Chronicity: acute Back pain laterality: left Qualified Code(s): M54.6 - Pain in thoracic spine Category: Medical (4) Essential hypertension Current Visit: Yes Status: Acute Onset Date: 01/10/17 Code(s): I10 - Essential (primary) hypertension Category: Medical (5) Gout Current Visit: Yes Status: Chronic Onset Date: 01/10/17 Code(s): M10.9 - Gout, unspecified Qualifiers: Gout site: unspecified site Encounter type: initial encounter Chronicity: chronic Presence of tophus: without tophus Category: Medical (6) Depression (emotion) Current Visit: Yes Status: Chronic Code(s): F32.9 - Major depressive disorder, single episode, unspecified Qualifiers: Depression Type: reactive depression Qualified Code(s): F32.9 - Major depressive disorder, single episode, unspecified Category: Medical (7) Headache, chronic migraine without aura Current Visit: Yes Status: Chronic Code(s): G43.709 - Chronic migraine without aura, not intractable, without status migrainosus Qualifiers: Status migrainosus presence: without status migrainosus Intractability: not intractable Qualified Code(s): G43.709 - Chronic migraine without aura, not intractable, without status migrainosus Category: Medical (8) Chest pain Current Visit: Yes Status: Resolved Code(s): R07.9 - Chest pain, unspecified Qualifiers: Chest pain type: chest pain on breathing Qualified Code(s): R07.1 - Chest pain on breathing; R07.81 - Pleurodynia Category: Medical (9) Cervical stenosis of spine Current Visit: Yes Status: Acute Code(s): M48.02 - Spinal stenosis, cervical region Category: Medical
[2019-01-13 09:40] VITALS: BP 108/71; TEMP 98.2; O2SAT 94
[2019-01-13] MEDS ORDERED: METHYLPREDNISOLONE 4 MG TAB DOSE PACK(DAY 1-4 1230) PO SCH (12:00)
[2019-01-13] MEDS ORDERED: METHYLPREDNISOLONE 4 MG TAB DOSE PACK(DAY 1-3 1730) PO SCH (17:30)
[2019-01-13] MEDS ORDERED: METHYLPREDNISOLONE 4 MG TAB DOSE PACK(DAY 1-2 2100) PO SCH (21:00)
[2019-01-14] MEDS ORDERED: METHYLPREDNISOLONE 4 MG TAB DOSE PACK(DAY 2-6 0700) PO SCH (07:00)
[2019-01-14 13:05] LABS: HEPATITIS B SURFACE AG Negative (Negative)
[2019-01-15] MEDS ORDERED: METHYLPREDNISOLONE 4 MG TAB DOSE PACK(DAY 3-5 2100) PO SCH (21:00)
== END 2019-01-13 10:09 | disposition short-term general hospital (02) | DRG 872 ==
LOC: MED/SURG → OBSVTOIN 13:54 → UNDODISIN 01-13 10:09
PROVIDERS: ADMIT Family Medicine; ATTEND Family Medicine